=== PATIENT | male | born 1950 | race Native Hawaiian/Other Pacific Islander ===

== ENCOUNTER 2016-12-11 17:58 | Emergency (ER) | payer OTHER ==
[~2016-12-11] VITALS: Ht 170.2 cm; Wt 77.1 kg
[2016-12-11] MEDS ORDERED: ACET-689 PO (18:14)
[2016-12-11] MEDS ORDERED: CLON0.5T36 PO (18:15)
[2016-12-11 19:09] VITALS: BP 160/88; TEMP 98.2
== END 2016-12-11 19:10 | disposition home or self-care (01) ==
LOC: ED 17:58
DX: S56.811A Strain of other muscles, fascia and tendons at forearm level, right arm, initial encounter (principal); W18.39XA Other fall on same level, initial encounter; Y92.89 Other specified places as the place of occurrence of the external cause
CPT/HCPCS: 99283